=== PATIENT | male | born 1995 | race Caucasian/White ===

== ENCOUNTER 2020-11-25 14:18 | Emergency (ER) | payer OTHER ==
[2020-11-25 14:27] VITALS: BP 145/79
--- NOTE | 2020-11-25 14:41 | ED Physician Documentation ---
History of Present Illness - Stated complaint Stated Complaint: RT EYE SCRATCH - Chief complaint Chief Complaint: Heent - History obtained from History obtained from: Patient - History of Present Illness Timing: Last night Pain level max: 3 Pain level now: 3 - Additonal information Additional information: Patient is a 24-year-old male who traveled on an airplane yesterday, today he states that his right eye feels like there is something in it. Does not wear glasses or contacts. No trauma. Nothing makes it better or worse. Has had a corneal abrasion in the past that felt somewhat similar. Review of Systems Constitutional: denies: Fever, Chills Nose: denies: Rhinorrhea / runny nose, Congestion GI: denies: Vomiting PD PAST MEDICAL HISTORY - Past Medical History Past Medical History: No - Past Surgical History Past Surgical History: No - Present Medications Home Medications: Ambulatory Orders Medication Instructions Recorded Confirmed Polymyxin B/Trimeth Ophth Drop 1 drops RIGHTEYE Q3H 7 Days #1 11/25/20 [Polytrim Ophth Drops] bottle - Allergies Allergies/Adverse Reactions: Allergies Allergy/AdvReac Type Severity Reaction Status Date / Time No Known Drug Allergies Allergy Verified 11/25/20 14:27 - Living Situation Living Arrangement: reports: At home - Social History Does the pt have substance abuse?: No PD ED PE NORMAL - Vitals Vital signs reviewed: Yes - General General: Alert and oriented X 3, No acute distress - HEENT HEENT: PERRL, EOMI, Moist mucous membranes, Pharynx benign, Other (Mild conjunctival injection to the right eye. No drainage. No fluorescein uptake. Eyelids everted. No foreign bodies.) - Neck Neck: Supple, no meningeal sign - Cardiac Cardiac: RRR - Respiratory Respiratory: No respiratory distress - Derm Derm: Warm and dry - Neuro Neuro: Alert and oriented X 3 Results - Vitals Vitals: Vital Signs - 24 hr 11/25/20 14:24 Temperature 36.7 C Heart Rate 57 L Respiratory 14 Rate Blood Pressure 145/79 H O2 Saturation 100 Oxygen O2 Source Room air PD MEDICAL DECISION MAKING - ED course Complexity details: considered differential, d/w patient ED course: Patient with right eye discomfort of unclear etiology. Possible early conjunctivitis? We will give him another 24 hours and if he fails to improve can start on Polytrim ophthalmic. Can follow-up with his doctor for further care. No foreign body, no abrasions. No drainage currently. Patient counseled regarding signs and symptoms for which I believe and urgent re-evaluation would be necessary. Patient with good understanding of and agreement to plan and is comfortable going home at this time This document was made in part using voice recognition software. While efforts a re made to proofread this document, sound alike and grammatical errors may occur. No fluorescein uptake. Symptoms improved with Proparacaine Departure - Departure Disposition: 01 Home, Self Care Clinical Impression: Eye discomfort Qualifiers: Laterality: right Qualified Code(s): H57.11 - Ocular pain, right eye Condition: Good Instructions: ED Conjunctivitis Nonspecific Follow-Up: your,doctor in 3 days if not better [Other] Prescriptions: Polymyxin B/Trimeth Ophth Drop [Polytrim Ophth Drops] 1 drops RIGHTEYE Q3H 7 Days #1 bottle Comments: If your eye is not improved by tomorrow, start the antibiotics. If you are still not improved within 3 to 4 days, you should follow-up with your doctor for further care. Return if you worsen. [place]
== END 2020-11-25 14:48 | disposition home or self-care (01) ==
LOC: ED 14:18
DX: H57.11 Ocular pain, right eye (principal)
CPT/HCPCS: 99282; 99283